=== PATIENT | female | born 1985 | race Caucasian/White ===

== ENCOUNTER 2017-09-03 17:55 | Observation (INO) | payer OTHER ==
[~2017-09-03] VITALS: Ht 166 cm; Wt 78.9 kg
[2017-09-03] MEDS ORDERED: PREN-134 PO (18:29)
[2017-09-03 18:31] VITALS: BP 122/81
== END 2017-09-03 20:05 | disposition home or self-care (01) ==
LOC: 4S 17:55
PROVIDERS: ADMIT Obstetrics & Gynecology; ATTEND Obstetrics & Gynecology
DX: O26.893 Other specified pregnancy related conditions, third trimester (principal); R10.30 Lower abdominal pain, unspecified; Z3A.37 37 weeks gestation of pregnancy
CPT/HCPCS: 36415; 59025; 89060; G0378

== ENCOUNTER 2017-09-05 10:50 | Observation (INO) | payer OTHER ==
[~2017-09-05] VITALS: Ht 166 cm; Wt 78.9 kg
[~2017-09-05 10:50] MED LIST: PREN-134 PO
[2017-09-05 11:57] VITALS: BP 115/77
== END 2017-09-05 12:25 | disposition home or self-care (01) ==
LOC: 4S 10:50
PROVIDERS: ADMIT Obstetrics & Gynecology; ATTEND Obstetrics & Gynecology
DX: Z34.93 Encounter for supervision of normal pregnancy, unspecified, third trimester (principal); Z3A.37 37 weeks gestation of pregnancy
CPT/HCPCS: 59025; G0378

== ENCOUNTER 2017-09-09 07:40 | Inpatient (IN) | payer OTHER ==
[~2017-09-09] VITALS: Ht 166 cm; Wt 80.7 kg
[2017-09-09] MEDS ORDERED: RINGERS SOLUTION,LACTATED 1,000 ML IV ONE ×2 (07:52→08:17)
[2017-09-09] MEDS ORDERED: METOCLOPRAMIDE HCL 5 MG/ML 2 ML VIAL IVP ONE (08:00)
[2017-09-09] MEDS ORDERED: CITRIC ACID/SODIUM CITRATE 30 ML SOLUTION UDCUP PO ONE (08:00)
[2017-09-09 08:05] VITALS: BP 138/91
[2017-09-09] MEDS ORDERED: MORPHINE SULFATE/PF 0.5 MG/ML 10 ML AMP ONE (08:16)
[2017-09-09] MEDS ORDERED: FentaNYL CITRATE-PF 100 MCG/2 ML VIAL ONE (08:17)
[2017-09-09] MEDS ORDERED: MIDAZOLAM HCL 2 MG/2 ML VIAL ONE (08:17)
[2017-09-09 08:43] LABS: BASOPHILS % (AUTO) 0.2 % (0.0-2.0); EOSINOPHILS % (AUTO) 0.8 % (1.0-6.0); HEMATOCRIT 34.7 % (36-46); HEMOGLOBIN 11.7 g/dL (12.0-16.0); LYMPHOCYTES # (AUTO) 2.4 K/uL (1.0-4.8); LYMPHOCYTES % (AUTO) 20.4 % (22.0-44.0); MEAN CORPUSCULAR HEMOGLOBIN 29.1 pg (26.0-34.0); MEAN CORPUSCULAR HGB CONC 33.6 G/dL (31.0-37.0); MEAN CORPUSCULAR VOLUME 87 fL (80-100); MONOCYTES # (AUTO) 0.7 K/uL (0.1-1.0); MONOCYTES % (AUTO) 5.7 % (2.0-9.0); NEUTROPHILS # (AUTO) 8.7 K/uL (1.8-7.7); NEUTROPHILS % (AUTO) 72.9 % (40.0-70.0); PLATELET COUNT (AUTO) 284 K/uL (150-450); RED BLOOD CELL COUNT(AUTO) 4.01 MIL/uL (4.00-5.20); RED CELL DISTRIBUTION WIDTH 13.9 % (11.5-14.5)
[2017-09-09] MEDS ORDERED: DiphenhydrAMINE HCL 50 MG/ML VIAL IVP PRN ×2 (10:30)
[2017-09-09] MEDS ORDERED: MORPHINE SULFATE 4 MG/ML SYRINGE IVP PRN (10:30)
[2017-09-09] MEDS ORDERED: MORPHINE SULFATE 2 MG/ML SYRINGE IVP PRN (10:30)
[2017-09-09] MEDS ORDERED: ONDANSETRON HCL 4 MG/2 ML VIAL IVP PRN ×2 (10:30)
[2017-09-09] MEDS ORDERED: FentaNYL CITRATE-PF 100 MCG/2 ML VIAL IVP PRN ×2 (10:30)
[2017-09-09] MEDS ORDERED: OXYGEN THERAPY IH SCH ×2 (10:30)
[2017-09-09] MEDS ORDERED: ACETAMINOPHEN 1000 MG/ISO-OSM 100 ML IV ONE (10:52)
[2017-09-09] MEDS ORDERED: LANOLIN 7 GM OINTMENT TP PRN (11:00)
[2017-09-09] MEDS: ACETAMINOPHEN 1000 MG/ISO-OSM 100 ML IV SCH ×2 (11:02→18:52)
[2017-09-09] MEDS ORDERED: OXYTOCIN 10 UNITS/ML VIAL IM ONE (12:00)
[2017-09-09] MEDS ORDERED: ONDANSETRON HCL 4 MG/2 ML VIAL IVP ONE (12:00)
[2017-09-09] MEDS ORDERED: DEXAMETHASONE SOD PHOS 4 MG/ML VIAL IVP ONE (12:00)
[2017-09-09] MEDS ORDERED: EPHEDrine SULFATE 50 MG/ML VIAL IM ONE (12:00)
[2017-09-09] MEDS ORDERED: INFLUENZA VIRUS VACCINE QVS 2017-18 (3YR+)/PF 60 MCG/0.5 ML SYRINGE IM ONE (12:15)
[2017-09-09] MEDS: NALBUPHINE HCL 10 MG/ML VIAL IVP SCH ×2 (15:00→21:18)
[2017-09-09] MEDS: DEXTROSE 5%-0.45% SODIUM CHL 1,000 ML IV SCH ×2 (15:33→20:07)
[2017-09-10] MEDS: DEXTROSE 5%-0.45% SODIUM CHL 1,000 ML IV SCH ×2 (00:17→04:51)
[2017-09-10] MEDS ORDERED: DEXTROSE 5%-0.45% SODIUM CHL 1,000 ML IV ONE (02:08)
[2017-09-10] MEDS: ACETAMINOPHEN 1000 MG/ISO-OSM 100 ML IV SCH (03:07)
[2017-09-10] MEDS: NALBUPHINE HCL 10 MG/ML VIAL IVP SCH (03:07)
[2017-09-10] MEDS: IBUPROFEN 800 MG TABLET PO SCH ×3 (04:51→17:39)
[2017-09-10] MEDS: MAGNESIUM HYDROXIDE SUSPENSION 30 ML UDCUP PO SCH ×2 (09:07→20:59)
[2017-09-10] MEDS: ACETAMINOPHEN/CODEINE 300-30 MG TABLET PO PRN ×3 (10:21→21:08)
[2017-09-11] MEDS: ACETAMINOPHEN/CODEINE 300-30 MG TABLET PO PRN ×2 (02:48→12:52)
[2017-09-11] MEDS: IBUPROFEN 800 MG TABLET PO SCH ×4 (02:48→22:07)
[2017-09-11] MEDS: MAGNESIUM HYDROXIDE SUSPENSION 30 ML UDCUP PO SCH ×2 (09:07→22:08)
[2017-09-12] MEDS: IBUPROFEN 800 MG TABLET PO SCH ×2 (04:32→10:37)
[2017-09-12] MEDS: MAGNESIUM HYDROXIDE SUSPENSION 30 ML UDCUP PO SCH (09:00)
[2017-09-12] MEDS ORDERED: ACET1TAB12 PO (11:44)
[2017-09-12] MEDS ORDERED: IBUP-2070 PO (11:45)
[2017-09-12] MEDS ORDERED: DSS100 PO (11:46)
[2017-09-12] MEDS ORDERED: FERR-89 PO (11:47)
== END 2017-09-12 13:30 | disposition home or self-care (01) | DRG 766 ==
LOC: OBSVTOIN 07:40 → 4S 07:40
PROVIDERS: ADMIT Obstetrics & Gynecology; ATTEND Obstetrics & Gynecology
PROC: 10D00Z1 Extraction of Products of Conception, Low, Open Approach (ICD-10-PCS; principal; 2017-09-09)
DX: O34.211 Maternal care for low transverse scar from previous cesarean delivery (principal); Z37.0 Single live birth; Z3A.39 39 weeks gestation of pregnancy
CPT/HCPCS: 86850; 86900; 86901; 87081; J0131; J0690; J1100; J1200; J2250; J2274; J2300; J2405; J2590; J2765; J3010; J3490; J7120